=== PATIENT | male | born 2000 | race Caucasian/White ===

== ENCOUNTER 2019-11-24 10:22 | Emergency (ER) | payer BC ==
[~2019-11-24] VITALS: Ht 190.5 cm; Wt 99.8 kg
[2019-11-24 10:22] VITALS: BP_SYST 146
--- NOTE | 2019-11-24 10:25 | NUR ---
Patient triaged and placed in waiting room. VSS and patient appears in no acute distress at this time. Accompanied by MOTHER, awaiting available bed, and MD notified of need for MSE.
--- NOTE | 2019-11-24 10:30 | NUR ---
Pt brought by self,A&Ox4, pt presents to ER with cough , congestion, bodyaches, skin pink and warm, cap refill<3.
--- NOTE | 2019-11-24 11:50 | NUR ---
Jensen Nickerson at bedside examining patient
[2019-11-24] MEDS ORDERED: IBUPROFEN 800 MG TABLET PO ONE (12:00)
[2019-11-24 12:13] VITALS: BP_SYST 146
--- NOTE | 2019-11-24 12:13 | NUR ---
Patient given written and verbal discharge instructions and verbalizes understanding. ER MD discussed with patient the results and treatment provided. Patient in stable condition. ID arm band removed. Rx of Promethazine, Ibuprofen given. Patient educated on pain management and to follow up with PMD. Pain Scale 0/10 . Opportunity for questions provided and answered. Medication side effect fact sheet provided.
== END 2019-11-24 12:13 | disposition home or self-care (01) ==
LOC: SED 10:22
DX: J06.9 Acute upper respiratory infection, unspecified (principal); R05 Cough; R50.9 Fever, unspecified; Z88.1 Allergy status to other antibiotic agents
CPT/HCPCS: 36415; 71045; 86710; 99284